=== PATIENT | male | born 1985 | race African-American/Black ===

== ENCOUNTER 2018-03-18 16:42 | Emergency (ER) | payer SELFPAY ==
[2018-03-18 16:50] VITALS: BP 150/97
[2018-03-18] MEDS ORDERED: PREDNISONE 20 MG TABLET PO ONE (17:11)
[2018-03-18] MEDS ORDERED: IPRATROPIUM/ALBUTEROL 0.5-2.5 MG/3 ML AMPUL NEB ONE (17:11)
--- NOTE | 2018-03-18 17:12 | ER Document Report ---
HPI - HPI Patient complains to provider of: Cold symptoms Onset: Last week Onset/Duration: Persistent Pain Level: Denies Context: Patient presents complaining of cold symptoms for the past week. Patient reports nonproductive cough. Patient is uncertain if he may have had a fever at home. Patient denies any sore throat or ear pain. Associated Symptoms: Nonproductive cough. denies: Earache, Fever, Headache, Nausea, Shortness of breath Exacerbated by: Denies Relieved by: Denies Similar symptoms previously: No Recently seen / treated by doctor: No - ROS ROS below otherwise negative: Yes Systems Reviewed and Negative: Yes All other systems reviewed and negative - CONSTITUTIONAL Constitutional: DENIES: Fever - EENT EENT: DENIES: Congestion - CARDIOVASCULAR Cardiovascular: DENIES: Chest pain - RESPIRATORY Respiratory: REPORTS: Coughing - GASTROINTESTINAL Gastrointestinal: DENIES: Abdominal Pain, Patient vomiting, Diarrhea - DERM Skin Color: Normal Skin Problems: None Past Medical History - General Information source: Patient - Social History Smoking Status: Current Every Day Smoker Smoking Education Provided: Yes Frequency of alcohol use: None Drug Abuse: None Occupation: Mental health counseling Family History: Reviewed & Not Pertinent - Medical History Medical History: Negative Surgical Hx: Negative Vertical Provider Document - CONSTITUTIONAL Agree With Documented VS: Yes Exam Limitations: No Limitations General Appearance: WD/WN, No Apparent Distress - INFECTION CONTROL TRAVEL OUTSIDE OF THE [place] IN LAST 30 DAYS: No - HEENT HEENT: Atraumatic, Normal ENT Exam, Normocephalic - NECK Neck: Normal Inspection, Supple. negative: Lymphadenopathy-Left, Lymphadenopathy-Right - RESPIRATORY Respiratory: No Respiratory Distress, Wheezing - CARDIOVASCULAR Cardiovascular: Regular Rate, Regular Rhythm, No Murmur - BACK Back: Normal Inspection - MUSCULOSKELETAL/EXTREMETIES Musculoskeletal/Extremeties: MAEW - NEURO Level of Consciousness: Awake, Alert, Appropriate Motor/Sensory: No Motor Deficit - DERM Integumentary: Warm, Dry, No Rash Course - Re-evaluation Re-evalutation: 03/18/18 18:03 Patient with good air movement and decreased wheezing bilaterally. Chest x-ray reviewed, no concern for pneumonia at this time. Discussed worsening symptoms of patient to return immediately for. Patient verbalized understanding and agrees with plan of care. - Vital Signs Vital signs: Temp Pulse Resp BP Pulse Ox 98.7 F 72 18 150/97 H 98 03/18/18 16:47 03/18/18 16:47 03/18/18 16:47 03/18/18 16:47 03/18/18 16:47 - Diagnostic Test Radiology reviewed: Reports reviewed Discharge - Discharge Clinical Impression: Wheezing Upper respiratory infection Qualifiers: URI type: unspecified URI Qualified Code(s): J06.9 - Acute upper respiratory infection, unspecified Condition: Stable Disposition: HOME, SELF-CARE Additional Instructions: Return immediately for any new or worsening symptoms Followup with your primary care provider, call tomorrow to make a followup appointment UPPER RESPIRATORY ILLNESS: You have a viral infection of the respiratory passages -- a "cold." This common infection causes nasal congestion, drainage, and often sore throat and cough. It is highly contagious. The disease usually lasts about 10 to 14 days. There is no "cure" for the viral infection -- it must run its course. If there is a complication, such as bacterial infection in the nose, sinuses, middle ear, or bronchial tubes, antibiotics may be required. The antibiotics won't affect the virus. Drink plenty of fluids. A humidifier may help. An expectorant medication or decongestant may make you more comfortable. Use acetaminophen or ibuprofen for fever or aches. See the doctor if fever persists over two days, if there is any significant worsening of your symptoms, or if you simply fail to improve as expected. BRONCHOSPASM: You have tightness in the bronchial tubes, called bronchospasm. This often occurs with bronchial infections. Allergies, inhaled chemicals, and polluted or cold air can also provoke bronchospasm. It's more likely in patients with asthma in the family. Emergency treatment of bronchospasm may include adrenaline shots or bronchodilator aerosol. You may feel lightheaded and have a rapid pulse for an hour or two. Rest and get plenty of fluids. At home, we'll treat you with a bronchodilator inhaler. Antibiotics and corticosteroids may be required for some patients. Until you recover, avoid chemical fumes, dusts, pollens, and exercising in very cold or dry air. If you smoke, stop now!! If you develop a fever, increased wheezing, chest pain, or severe shortness of breath, you should contact the doctor immediately. INHALED BRONCHODILATORS: You have received a treatment of and/or prescription for an inhaled bronchodilator -- a medication which stimulates the airways in the lung to dilate. This improves the flow of air in asthma, bronchitis, and emphysema. These medicines have some similarity to adrenaline, and can cause similar side effects: shakiness, racing heart, and a sense of nervousness. These side effects decrease with time. Contact your doctor if these side effects are severe. Do not over-use the medicine. Too-frequent use of the inhaler may make it ineffective. Call your doctor if the inhaler is not controlling your symptoms at the prescribed doses. STEROID MEDICATION: You have been given an injection of or oral medicine of the cortisone/ steroid class. This medication is used to control inflammation or allergy. Erik t is usually only given for a short period of time, until the acute process subsides. There are usually no side effects from short-term use of cortisone-like medications. Some persons feel an increased sense of well-being and are not sleepy at bedtime. Long-term use of cortisone medications is best avoided, unless required for a severe condition. If your condition does not remit, or relapses after the course of corticosteroid medication, you should consult your physician. USE OF ACETAMINOPHEN (Tylenol): Acetaminophen may be taken for pain relief or fever control. It's much safer than aspirin, offering a wider range of "safe" dosages. It is safe during . Some brand names are Tylenol, Panadol, Datril, Anacin 3, Tempra, and Liquiprin. Acetaminophen can be repeated every four hours. The following are maximum recommended dosages: >89 pounds or adults 650 mg to 900 mg Acetaminophen can be repeated every four hours. Maximum dose not to exceed 4000 mg a day. SMOKING: If you smoke, you should stop smoking. The tar and chemicals in cigarette smoke are harmful. Smoking has been shown to cause: emphysema chronic bronchitis lung cancer mouth and throat cancer stomach and pancreas cancer premature aging defects In addition, smoking increases ear and lung infections in children of smokers. FOLLOW-UP CARE: If you have been referred to a physician for follow-up care, call the physician s office for an appointment as you were instructed or within the next two days. If you experience worsening or a significant change in your symptoms, notify the physician immediately or return to the Emergency Department at any time for re-evaluation. Prescriptions: Albuterol Sulfate [Ventolin Hfa] 2 puff IH Q4HP PRN #17 gm PRN Reason: Prednisone [Deltasone 20 mg Tablet] 3 tab PO DAILY 4 Days tablet Forms: Return to Work Referrals: [facility] [Provider Group] - Follow up as needed
--- NOTE | 2018-03-18 17:36 | RADIOLOGY REPORT (SQ) ---
EXAM DESCRIPTION: CHEST 2 VIEWS COMPLETED DATE/TIME: 03/18/2018 5:23 pm REASON FOR STUDY: cough COMPARISON: None. EXAM PARAMETERS: NUMBER OF VIEWS: two views TECHNIQUE: Digital Frontal and Lateral radiographic views of the chest acquired. RADIATION DOSE: NA LIMITATIONS: none FINDINGS: LUNGS AND PLEURA: No opacities, masses or pneumothorax. No pleural effusion. MEDIASTINUM AND HILAR STRUCTURES: No masses or contour abnormalities. HEART AND VASCULAR STRUCTURES: Heart normal size. No evidence for failure. BONES: No acute findings. HARDWARE: None in the chest. OTHER: No other significant finding. IMPRESSION: NO ACUTE RADIOGRAPHIC FINDING IN THE CHEST. TECHNICAL DOCUMENTATION: JOB ID: [id number] [employer]- All Rights Reserved Reading location - IP/workstation name: [email or web address]
== END 2018-03-18 18:13 | disposition home or self-care (01) ==
LOC: ER 16:42
DX: J06.9 Acute upper respiratory infection, unspecified (principal); R06.2 Wheezing; R05 Cough; F17.200 Nicotine dependence, unspecified, uncomplicated
CPT/HCPCS: 94640; 99283; 71046; J7512; J7620

== ENCOUNTER 2020-04-12 12:45 | Emergency (ER) | payer SELFPAY ==
[2020-04-12 12:50] VITALS: BP 137/88
--- NOTE | 2020-04-12 13:23 | ER Document Report ---
HPI - HPI Time Seen by Provider: 04/12/20 13:15 - ROS Systems Reviewed and Negative: Yes All other systems reviewed and negative - EENT Notes: Otherwise healthy 35-year-old male presenting to the emergency department chief complaint of dental pain. Patient reports tooth #31 broke when he was eating 4 days ago. He states he has had significant pain since. He states he made an a dentist appointment for tomorrow however they wanted him to be started on antibiotics in case of infection. He has taken Tylenol and ibuprofen [id number] without relief. He denies any fever chills or drainage from the area. Past Medical History - General Information source: Patient - Social History Smoking Status: Never Smoker Frequency of alcohol use: None Drug Abuse: None Family History: Reviewed & Not Pertinent - Medical History Medical History: Negative Renal/ Medical History: Denies: Hx Peritoneal Dialysis Surgical Hx: Negative Vertical Provider Document - CONSTITUTIONAL Notes: PHYSICAL EXAMINATION: GENERAL: Well-appearing, well-nourished and in no acute distress. HEAD: Atraumatic, normocephalic. EYES: Pupils equal round extraocular movements intact, conjunctiva are normal. ENT: Nares patent, fracture noted to tooth #31, mild surrounding erythema, no mona abscess, no trismus. NECK: Normal range of motion LUNGS: No respiratory distress Musculoskeletal: Normal range of motion NEUROLOGICAL: Normal speech, normal gait. PSYCH: Normal mood, normal affect. SKIN: Warm, Dry, normal turgor, no rashes or lesions noted. - INFECTION CONTROL TRAVEL OUTSIDE OF THE [place] IN LAST 30 DAYS: No Course - Re-evaluation Re-evalutation: Patient has pain likely coming from an infected tooth. He is seeing a dentist tomorrow for possible extraction versus filling, they would like him on a ntibiotics. Will start patient on amoxicillin. He states he has had an allergic reaction to Augmentin but has taken amoxicillin and penicillin in the past without problems. He will also be given a short course of pain medication. - Vital Signs Vital signs: Temp Pulse Resp BP Pulse Ox 98.6 F 92 18 137/88 H 98 04/12/20 12:49 04/12/20 12:49 04/12/20 12:49 04/12/20 12:49 04/12/20 12:49 Discharge - Discharge Clinical Impression: Fractured tooth Qualifiers: Encounter type: initial encounter Fracture type: closed Qualified Code(s): S02.5XXA - Fracture of tooth (traumatic), initial encounter for closed fracture Condition: Stable Disposition: HOME, SELF-CARE Additional Instructions: Please take medications as prescribed. When you first get the prescription please take 2 tablets of the amoxicillin and then continue to take them 3 times daily. Take the pain medication as prescribed. Please also take ibuprofen 600 mg every 6 hours, you can buy this [id number]. Keep the dentist appointment you have scheduled for tomorrow. Prescriptions: Oxycodone HCl/Acetaminophen [Percocet 5-325 mg Tablet] 1 tab PO Q6HP PRN #10 tablet PRN Reason: Amoxicillin 1 tab PO TID #21 tab Forms: Return to Work
== END 2020-04-12 13:28 | disposition home or self-care (01) ==
LOC: ER 12:45
DX: S02.5XXA Fracture of tooth (traumatic), initial encounter for closed fracture (principal); X58.XXXA Exposure to other specified factors, initial encounter
CPT/HCPCS: 99284